=== PATIENT | female | born 1965 | race Caucasian/White ===

== ENCOUNTER 2020-10-24 18:07 | Emergency (ER) | payer OTHER ==
[2020-10-24 18:16] VITALS: BP 152/90
[2020-10-24] MEDS ORDERED: LIDOCAINE 1% INJ-PF (10 MG/ML) 30 ML SDV INJ ONE (20:01)
[2020-10-24] MEDS ORDERED: DIPH/PERTUSS(ACELL)/TETANUS VAC/PF 0.5 ML SYR (>=10YO) IM ONE (20:02)
--- NOTE | 2020-10-24 20:28 | ER Document Report ---
HPI - HPI Time Seen by Provider: 10/24/20 19:57 Pain Level: 4 - CONSTITUTIONAL Notes: 55-year-old female presents to the emergency room today for evaluation of left index finger that she accidentally lacerated on a pair scissors that accidentally slipped. Unsure of her last tetanus, thinks it was in 2007. States she applied gauze and direct pressure. She went to an urgent care but they sent her here. Denies any other area of injury. Pain is 1 out of 5, intermittent throbbing. Has not tried any [id number] medications. Denies fevers, chills, chest pain,palpitations, shortness of breath, dyspnea, nausea, vomiting, diarrhea, abdominal pain, hematuria,blurred vision, double vision, loss of vision, speech changes, LH, dizziness, syncope, headaches, wheezing, ST, URI, neck pain, weakness, bowel or bladder dysfunction, saddle anesthesia, numbness or tingling in bilateral upper or lower extremities equally, muscle paralysis, weakness in bilateral upper or lower extremities equally or rash. Past Medical History - General Information source: Patient - Social History Smoking Status: Current Every Day Smoker Chew tobacco use (# tins/day): No Frequency of alcohol use: None Drug Abuse: None Family History: Reviewed & Not Pertinent Vertical Provider Document - CONSTITUTIONAL Agree With Documented VS: Yes Exam Limitations: No Limitations General Appearance: WD/WN Notes: MEDICATIONS: I agree with the patient medications as charted by the RN. ALLERGIES: I agree with the allergies as charted by the RN. PAST MEDICAL HISTORY/PAST SURGICAL HISTORY: Reviewed and agree as charted by RN. SOCIAL HISTORY: Reviewed and agree as charted by RN. FAMILY HISTORY: No significant familial comorbid conditions directly related to patient complaint EXAM: Reviewed vital signs as charted by RN. PHYSICAL EXAMINATION: reviewed vital signs by RN GENERAL: Well-appearing, well-nourished and in no acute distress. HEAD: Atraumatic, normocephalic. EYES: Pupils equal round and reactive to light, extraocular movements intact, conjunctiva are normal. ENT: Nares patent, oropharynx clear without exudates. Moist mucous membranes. NECK: Normal range of motion, supple without lymphadenopathy LUNGS: Breath sounds clear to auscultation bilaterally and equal. No wheezes rales or rhonchi. HEART: Regular rate and rhythm without murmurs ABDOMEN: Soft, nontender, nondistended abdomen. No guarding, no rebound. No masses appreciated. Female : deferred Musculoskeletal: Normal range of motion, no pitting or edema. No cyanosis. NEUROLOGICAL: Cranial nerves grossly intact. Normal speech, normal gait. Normal sensory, motor exams PSYCH: Normal mood, normal affect. SKIN: Warm, Dry, normal turgor, no rashes or lesions noted.Left index finger was 0.5 linear laceration on volar aspect of the DIP. Cap refill less than 3 seconds. Strip Picker +2 bilaterally equally. - INFECTION CONTROL TRAVEL OUTSIDE OF THE [place] IN LAST 30 DAYS: No Course - Re-evaluation Re-evalutation: 10/24/20 20:37 Afebrile vital stable no distress. Nurses notes reviewed. Please see procedure note for laceration repair. Advised to return to the emergency room in 7 to 10 days for suture removal. Monitor for any signs of infection such as redness, swelling, drainage. Patient tolerated procedure without incident. Tetanus today was updated. after performing a Medical Screening Examination, I estimate there is LOW risk for OPEN FRACTURE, COMPARTMENT SYNDROME, TENDON RUPTURE, ACUTE NEUROVASCULAR INJURY, or RETAINED FOREIGN BODY, thus I consider the discharge disposition reasonable. Also, there is no evidence or peritonitis, sepsis, or toxicity. I have reevaluated this patient multiple times and no significant life threatening changes are noted. The patient and I have discussed the diagnosis and risks, and we agree with discharging home with close follow-up with the understanding that symptoms and presentations can change. We also discussed returning to the Emergency Department immediately if new or worsening symptoms occur. We have discussed the symptoms which are most concerning (e.g., changing or worsening pain, fever, numbness, weakness, cool or painful digits) that necessitate immediate return. - Vital Signs Vital signs: Temp Pulse Resp BP Pulse Ox 97.6 F 77 16 152/90 H 98 10/24/20 18:12 10/24/20 18:12 10/24/20 18:12 10/24/20 18:12 10/24/20 18:12 - Laboratory Results Critical Laboratory Results Reviewed: No Critical Results - Radiology Results Critical Radiology Results Reviewed: No Critical Results Procedures - Laceration/Wound Repair Left 2nd digit Time completed: : - at 2nd finger DIP crease Wound length (cm): 0.5 - cm Wound's Depth, Shape: Linear Laceration pre-procedure: Sterile PPE sawyerned, Radha applied Anesthetic type: 1% Lidocaine Volume Anesthetic (mLs): 2 - mL Wound explored: Clean Wound Debrided: Minimal Wound Repaired With: Sutures Suture Size/Type: 4:0 Number of Sutures: 2 Layer Closure?: No Notes: 10/24/20 20:30 Verbal consent given for laceration repair. High-pressure irrigation with 100 mL of normal saline. No foreign body seen in exploration of wound. Wound edges well approximated, #2 simple sutures 4-0 Prolene placed at second left index finger at the DIP crease on volar aspect. Patient tolerated procedure without incident. Discharge - Discharge Clinical Impression: Laceration of left index finger Condition: Stable Disposition: HOME, SELF-CARE Instructions: Laceration Care ([facility]), Tetanus Immunization Given ([facility]), Soap Cleansing ([facility]) Additional Instructions: You had two sutures placed today. Please return to your primary doctor, the ED, or an urgent care in 7 days for suture removal. Return immediately if you develop spreading redness around the wound, pus from the wound, worsening pain, or a fever of >100.4. Keep the area clean and dry. Wash gently with soap and water twice daily and cover with antibiotic ointment. Referrals: CHRIS VERGARA MD [ACTIVE STAFF] - Follow up as needed
== END 2020-10-24 20:46 | disposition home or self-care (01) ==
LOC: ER 18:07
DX: S61.211A Laceration without foreign body of left index finger without damage to nail, initial encounter (principal); W26.8XXA Contact with other sharp object(s), not elsewhere classified, initial encounter; F17.200 Nicotine dependence, unspecified, uncomplicated; Z79.899 Other long term (current) drug therapy; Z23 Encounter for immunization
CPT/HCPCS: 99283; 90471; 90715; 12001; J3490